=== PATIENT | male | born 1945 | race Caucasian/White ===

== ENCOUNTER 2016-11-22 05:53 | Day surgery (SDC) | payer BC ==
--- NOTE | ~2016-11-22 | EGD ---
EGD REPORT [address] [place] [address] NAME: DAV NICOLE : [birth year] STATUS : REG [facility]#: [id number] AGE: 71 ADM/REG DATE : 11/22/16 MR#: [id number] REPORT SERV DATE: 11/22/16 DICTATED BY: YARIEL MCFADDEN DATE: 11/22/16 REPORT STATUS : Draft TRANSCRIBED BY: [facility] DATE: 11/22/16 [facility] Center Patient Name: Dav Nicole Date of : 1945 Attending MD: YARIEL MCFADDEN MD Procedure Date No Time: 11/22/2016 Procedure: Upper GI endoscopy Indications: Follow-up of polyp (adenoma) in the duodenum 2008; Omeprazole 20mg daily. Patient Profile: Informed consent was obtained from the patient by me prior to the procedure. Risks, benefits, and alternatives were discussed including the risk of bleeding, perforation, infection, reaction to medicine, missed lesion, and cardiopulmonary complications. Referring MD: MADELINE LOWERY Medicines: Monitored Anesthesia Care Complications: No immediate complications. Procedure: Pre-Anesthesia Assessment: - ASA Grade Assessment: II - A patient with mild systemic disease. After obtaining informed consent, the endoscope was passed under direct vision. Throughout the procedure, the patient's blood pressure, pulse, and oxygen saturations were monitored continuously. The GIF [id number] [id number] was introduced through the mouth, and advanced to the second part of duodenum. The endoscope was withdrawn with careful examination all mucosal surfaces including retroflexion stomach. The upper GI endoscopy was accomplished without difficulty. The patient tolerated the procedure well. Findings: A single 5 mm sessile polyp with was found in the second part of the duodenum. The polyp was removed with a cold biopsy forceps. Resection and retrieval were complete. A single 5 mm sessile polyp with was found in the first part of the duodenum. The polyp was removed with a cold biopsy forceps. Resection and retrieval were complete. The entire examined stomach was normal. A 5 cm hiatus hernia was present, no Michael lesions. The Z-line was irregular, few small islands; no nodules or esophagitis. Biopsies were taken with a cold forceps for histology. The examined esophagus was normal. Impression: - A single duodenal polyp. Resected and retrieved. EGD REPORT [address] [address] NAME: DAV NICOLE : [birth year] STATUS : REG [facility]#: [id number] AGE: 71 ADM/REG DATE : 11/22/16 MR#: [id number] REPORT SERV DATE: 11/22/16 DICTATED BY: YARIEL MCFADDEN DATE: 11/22/16 REPORT STATUS : Draft TRANSCRIBED BY: [employer] DATE: 11/22/16 - A single duodenal polyp. Resected and retrieved. - Normal stomach. - Hiatus hernia. - Z-line irregular,. Biopsied. - Normal esophagus. Recommendation: - Patient has a contact number available for emergencies. The signs and symptoms of potential delayed complications were discussed with the patient. Return to normal activities tomorrow. Written discharge instructions were provided to the patient. - Regular diet. - Continue present medications. - Await pathology results. Procedure Code(s): --- Professional --- 80567, Esophagogastroduodenoscopy, flexible, transoral; with biopsy, single or multiple Diagnosis Code(s): --- Professional --- K31.7, Polyp of stomach and duodenum K44.9, Diaphragmatic hernia without obstruction or gangrene K22.8, Other specified diseases of esophagus CPT copyright 2013 [employer]. All rights reserved. The codes documented in this report are preliminary and upon ophthalmic dispenser review may be revised to meet current compliance requirements. YARIEL MCFADDEN MD 11/22/2016 7:25 AM This report has been signed electronically. Number of Addenda: 0 Note Initiated On: 11/22/2016 7:05 AM Scope Withdrawal Time 0 hours 0 minutes 0 seconds [id number] [place] [id number]
--- NOTE | ~2016-11-22 | EGD ---
EGD REPORT [facility] [address] [place] [address] NAME: DAV NICOLE : 41 STATUS : REG [facility]#: [id number] AGE: 71 ADM/REG DATE : 11/22/16 MR#: [id number] REPORT SERV DATE: 11/22/16 DICTATED BY: YARIEL MCFADDEN DATE: 11/22/16 REPORT STATUS : Draft TRANSCRIBED BY: [facility] DATE: 11/22/16 Endoscopy Center Patient Name: Dav Nicole Date of : 1945 Attending MD: YARIEL MCFADDEN MD Procedure Date No Time: 11/22/2016 Procedure: Colonoscopy Indications: High risk colon cancer surveillance: Personal history adenoma >= 10 mm in size; last exam 2013. Patient Profile: Informed consent was obtained from the patient by me prior to the procedure. Risks, benefits, and alternatives were discussed including the risk of bleeding, perforation, infection, reaction to medicine, missed lesion, and cardiopulmonary complications. Referring MD: MADELINE LOWERY Medicines: Monitored Anesthesia Care Complications: No immediate complications. Procedure: Pre-Anesthesia Assessment: - ASA Grade Assessment: II - A patient with mild systemic disease. After I obtained informed consent, the scope was passed under direct vision. Throughout the procedure, the patient's blood pressure, pulse, and oxygen saturations were monitored continuously. The PCF [id number] was introduced through the anus and advanced to the cecum, identified by appendiceal orifice and ileocecal valve. The colonoscope was slowly withdrawn with careful examination all mucosal surfaces including specific attention around flexures and tip deflection behind folds; retroflexion performed in rectum. The colonoscopy was performed without difficulty. The patient tolerated the procedure well. The quality of the bowel preparation was adequate. The ileocecal valve, appendiceal orifice and rectum were photographed. Findings: Two sessile polyps were found in the transverse colon. The polyps were 5 mm in size. These polyps were removed with a cold biopsy forceps. Resection and retrieval were complete. Two flat polyps were found in the rectum. The polyps were 5 mm in size. These polyps were removed with a cold biopsy forceps. Resection and retrieval were complete. Impression: - Two 5 mm polyps in the transverse colon. Resected and retrieved. EGD REPORT [address] [address] NAME: DAV NICOLE : [birth year] STATUS : REG [facility]#: [id number] AGE: 71 ADM/REG DATE : 11/22/16 MR#: [id number] REPORT SERV DATE: 11/22/16 DICTATED BY: YARIEL MCFADDEN DATE: 11/22/16 REPORT STATUS : Draft TRANSCRIBED BY: [facility] DATE: 11/22/16 - Two 5 mm polyps in the rectum. Resected and retrieved. Recommendation: - Patient has a contact number available for emergencies. The signs and symptoms of potential delayed complications were discussed with the patient. Return to normal activities tomorrow. Written discharge instructions were provided to the patient. - Regular diet. - Continue present medications. - Await pathology results. - Repeat colonoscopy for surveillance based on pathology results. Procedure Code(s): --- Professional --- 24692, Colonoscopy, flexible, proximal to splenic flexure; with biopsy, single or multiple Diagnosis Code(s): --- Professional --- K62.1, Rectal polyp D12.3, Benign neoplasm of transverse colon Z86.010, Personal history of colonic polyps CPT copyright 2013 [employer]. All rights reserved. The codes documented in this report are preliminary and upon customer trainer review may be revised to meet current compliance requirements. YARIEL MCFADDEN MD 11/22/2016 7:47 AM This report has been signed electronically. Number of Addenda: 0 Note Initiated On: 11/22/2016 7:03 AM Scope Withdrawal Time 0 hours 12 minutes 56 seconds [id number] [place] [id number]
[~2016-11-22 05:53] MED LIST: ASAB PO; MULTIVITAMI1 PO; MULTIVITAMIN; PRILO PO; [UNRECOGNIZED DRUG - OTHER]
== END 2016-11-22 23:59 | disposition home or self-care (01) ==
LOC: DMU 05:53
PROVIDERS: Internal Medicine Gastroenterology
PROC: 0DB98ZZ Excision of Duodenum, Via Natural or Artificial Opening Endoscopic (ICD-10-PCS; 2016-11-22)
PROC: 0DB58ZX Excision of Esophagus, Via Natural or Artificial Opening Endoscopic, Diagnostic (ICD-10-PCS; 2016-11-22)
PROC: 0DBL8ZZ Excision of Transverse Colon, Via Natural or Artificial Opening Endoscopic (ICD-10-PCS; principal; 2016-11-22 07:00)
PROC: 0DBP8ZZ Excision of Rectum, Via Natural or Artificial Opening Endoscopic (ICD-10-PCS; 2016-11-22 07:00)
DX: Z12.11 Encounter for screening for malignant neoplasm of colon (principal); K62.1 Rectal polyp; D13.2 Benign neoplasm of duodenum; K29.80 Duodenitis without bleeding; K20.9 Esophagitis, unspecified; K44.9 Diaphragmatic hernia without obstruction or gangrene; K21.9 Gastro-esophageal reflux disease without esophagitis; Z86.010 Personal history of colon polyps; Z87.891 Personal history of nicotine dependence; Z88.1 Allergy status to other antibiotic agents; Z90.89 Acquired absence of other organs; Z79.82 Long term (current) use of aspirin; Z79.899 Other long term (current) drug therapy; Z98.890 Other specified postprocedural states
CPT/HCPCS: 88305